=== PATIENT | female | born 1995 | race Caucasian/White ===

== ENCOUNTER 2017-05-28 23:31 | Emergency (ER) | payer MEDICAID, OTHER ==
[2017-05-28 23:32] VITALS: BMI 22.4
--- NOTE | 2017-05-29 00:57 | C.PDOC ---
Time Seen by Provider: 05/29/17 00:12 Chief Complaint (Nursing): Chest Pain Past Medical History Vital Signs: Last Vital Signs Temp 98.5 F 05/28/17 23:44 Pulse 95 H 05/28/17 23:44 Resp 18 05/28/17 23:44 BP 117/79 05/28/17 23:44 Pulse Ox 99 05/28/17 23:44 - Medical History PMH: Denies: Chronic Kidney Disease Family History: States: Unknown Family Hx - Social History Hx Tobacco Use: No Hx Alcohol Use: Yes Hx Substance Use: No - Immunization History Hx Tetanus Toxoid Vaccination: No Hx Influenza Vaccination: No Hx Pneumococcal Vaccination: No ED Course And Treatment O2 Sat by Pulse Oximetry: 99 Disposition - Disposition Referrals: Non [facility] Provider, [Primary Care Provider] - Disposition: HOME/ ROUTINE Disposition Time: 01:00 Condition: STABLE Instructions: Chest Wall Pain (ED) - Clinical Impression Clinical Impression: Chest wall pain
[2017-05-29 01:15] VITALS: BP 120/81; PULSE 90; RESP 20; TEMP 98.2; O2SAT 96
--- NOTE | 2017-05-31 12:23 | CARD ---
APPROVED REPORT EKG Measurement Heart [id number] MD [id number] <Conclusion> Normal sinus rhythm Normal ECG
== END 2017-05-29 01:09 | disposition home or self-care (01) ==
LOC: SUPCPDRO 23:31 → C.ER 23:31
DX: R07.89 Other chest pain (principal)